=== PATIENT | female | born 1980 | race Caucasian/White ===

== ENCOUNTER 2016-12-21 23:20 | Inpatient (IN) | payer BC ==
[2016-12-22] MEDS ORDERED: Dibucaine 1% 28.35 GM TUBE ONE (02:32)
[2016-12-22] MEDS ORDERED: OXYTOCIN* 10 UNITS/ML 1 ML VIAL ONE (02:46)
[2016-12-22] MEDS ORDERED: Misoprostol TAB* 200 MCG ONE (02:46)
[2016-12-22] MEDS ORDERED: Glycerin ADULT SUPP PR PRN (02:47)
[2016-12-22] MEDS ORDERED: Witch Hazel PAD* JAR TOPICAL PRN (02:47)
[2016-12-22] MEDS ORDERED: Acetaminophen TAB* 325 MG PO PRN (02:47)
[2016-12-22] MEDS ORDERED: Dibucaine 1% 28.35 GM TUBE PR PRN (02:47)
[2016-12-22] MEDS: Ibuprofen TAB* 600 MG PO PRN ×3 (04:25→20:54)
[2016-12-22] MEDS ORDERED: Simethicone CHEW TAB* 80 MG PO SCH (08:30)
[2016-12-22] MEDS: Docusate CAP* 100 MG PO SCH ×3 (09:01→20:55)
[2016-12-22] MEDS: Sertraline* 100 MG TAB PO SCH (09:02)
--- NOTE | 2016-12-22 18:21 | PTEDU ---
Patient Name: ROB BUNCH ALIVIAOctober selected video: Never Ever Shake a Baby to view on 12/22/2016 at 6:20:58 PM from [facility] [id number]
[2016-12-23 00:51] VITALS: BP 119/70
[2016-12-23] MEDS: Docusate CAP* 100 MG PO SCH (07:25)
[2016-12-23] MEDS: Ibuprofen TAB* 600 MG PO PRN (07:25)
[2016-12-23] MEDS: Sertraline* 100 MG TAB PO SCH (07:25)
[2016-12-23 07:28] LABS: Hematocrit 35 % (35-47); Hemoglobin 11.8 g/dl (12.0-16.0); Mean Corpuscular HGB Conc 34 g/dl (31-36); Mean Corpuscular Hemoglobin 31 pg (27-31); Mean Corpuscular Volume 91 fL (80-97); Mean Platelet Volume 8 um3 (7.4-10.4); Red Blood Count 3.86 10^6/ul (4.0-5.4); Red Cell Distribution Width 15 % (10.5-15); White Blood Count 13.6 10^3/ul (3.5-10.8)
[2016-12-23] MEDS ORDERED: Ferrous Gluconate TAB* 324 MG TAB PO SCH (09:00)
[2016-12-23] MEDS ORDERED: Measles, Mumps,Rubella VACC* 0.5 ML/VIAL SUBCUT ONE (09:00)
== END 2016-12-23 12:15 | disposition home or self-care (01) | DRG 560 ==
LOC: MCHOBOUT 23:20 → MCHOB 23:53
PROVIDERS: ADMIT Midwife; ATTEND Midwife
PROC: 10E0XZZ Delivery of Products of Conception, External Approach (ICD-10-PCS; principal; 2016-12-22)
PROC: 0HQ9XZZ Repair Perineum Skin, External Approach (ICD-10-PCS; 2016-12-22)
PROC: 10907ZC Drainage of Amniotic Fluid, Therapeutic from Products of Conception, Via Natural or Artificial Opening (ICD-10-PCS; 2016-12-22)
DX: O99.344 Other mental disorders complicating childbirth (principal); F41.8 Other specified anxiety disorders; E78.00 Pure hypercholesterolemia, unspecified; O70.0 First degree perineal laceration during delivery; Z3A.39 39 weeks gestation of pregnancy; Z37.0 Single live birth
CPT/HCPCS: 36415; 85025; 86850; 86900; 86901; A9270-GY; J2590